=== PATIENT | female | born 1980 | race Caucasian/White ===

== ENCOUNTER 2016-12-22 17:10 | Emergency (ER) | payer OTHER ==
[2016-12-22] MEDS ORDERED: IOPAMIDOL 300 (61%) 100 ML VIAL IV ONE (17:11)
[2016-12-22] MEDS ORDERED: SODIUM CHLORIDE 0.9% 1,000 ML ONE ×2 (17:44→20:32)
[2016-12-22] MEDS ORDERED: ONDANSETRON 4 MG/2ML 2 ML VIAL ONE (17:44)
[2016-12-22] MEDS ORDERED: CEFTRIAXONE 1 GRAM DUPLEX 50 ML IV ONE (17:55)
[2016-12-22] MEDS ORDERED: KETOROLAC TROMETHAMINE 30 MG/ML 1 ML VIAL ONE (17:55)
[2016-12-22 18:25] LABS: ABSOLUTE NEUTROPHIL COUNT 12.8 K/mm3 (1.8-7.7); BASO % 0.2 % (0.2-1.0); HEMATOCRIT 37.6 % (37.0-47.0); HEMOGLOBIN 12.3 gm/l (12.0-16.0); IMM NEUT # 0.1 K/mm3 (0-0.2); IMM NEUT% 0.6 % (0-1); LYMPH # 0.9 (1.0-4.8); LYMPH % 6.1 % (15-45); MEAN CORPUSCULAR HEMOGLOBIN 30.8 pg (27.0-31.0); MEAN CORPUSCULAR HGB CONC 32.7 g/dl (33.0-37.0); MEAN PLATELET VOLUME 10.7 fl (7.4-10.4); MONO # 0.9 (0.0-0.8); MONO % 6.4 % (4-12); NEUT % 86.7 % (43-75); PLATELET COUNT 172 K/mm3 (130-400); RED CELL DISTRIBUTION WIDTH 12.2 % (11.5-14.5)
[2016-12-22 18:36] LABS: ALB/GLOB RATIO 0.9 (>1.0); ALBUMIN 3.1 gm/dL (3.5-5.7); CALCIUM 8.7 mg/dL (8.6-10.3)
[2016-12-22 19:27] LABS: BAND 8 % (0-10); BASOPHIL 0 % (0-1); EOSINOPHIL 0 % (1-3); LYMPHOCYTE 10 % (15-45); MONOCYTE 0 % (4-12); NEUTROPHILS 82 % (43-75); PLATELET ESTIMATE NORMAL (NORMAL); TOTAL CELLS COUNTED 100
[2016-12-22] MEDS ORDERED: VANCOMYCIN HCL 1 G in SODIUM CHLORIDE 0.9% 230 ML IV ONE (20:00)
[2016-12-22] MEDS ORDERED: SODIUM CHLORIDE 0.9% IV ONE (20:00)
[2016-12-22] MEDS ORDERED: CLINDAMYCIN PHOSPHATE IV ONE (20:00)
--- NOTE | 2016-12-22 20:29 | CT ---
CHEST CT WITH CONTRAST HISTORY: Right nipple injury. TECHNIQUE: Following the administration of 100 cc Isovue-300 intravenous contrast, contiguous axial images were acquired from the thoracic inlet to the diaphragmatic hiatus. COMPARISON: None. FINDINGS: THORACIC AORTA: Normal caliber. No evidence of dissection. LUNGS: Minor fibrotic atelectatic changes without gross airspace consolidation. Small pleural effusions.. TRISTON AND MEDIASTINUM: No grossly enlarged lymph nodes however there is stranding of fat identified at the anterior and superior mediastinum. MAJOR AIRWAYS: Grossly unremarkable. AXILLAE: Mild prominence of right axillary lymph nodes up to 1.4 cm in length.. UPPER ABDOMEN: Mottled appearance of hepatic attenuation. Enhancing lesion of the left hepatic lobe measuring 3.5 x 2.6 x 2.[address] versus ultrasound for further characterization. OSSEOUS STRUCTURES: No grossly destructive lesions. . SOFT TISSUES: Abnormal soft tissue edema involving the right-sided pectoral soft tissues, anterior soft tissues, right axilla, and the right supraclavicular fossa, with extension of fatty stranding to the thoracic inlet and mediastinum as above. IMPRESSION: 1. Extensive soft tissue inflammatory stranding, right greater than left, involving the anterior chest wall, right axilla and right supraclavicular fossa, with mediastinal extension, worrisome for cellulitis and mediastinitis. No soft tissue gas identified. 2. Right axillary adenopathy. 3. Small pleural effusions. 4. Enhancing mass lesion of the liver measuring 2.5 cm in size, further workup is recommended. Findings discussed with Dr. Salcido of the Emergency Medicine clinical service on 12/22/2016 at 2024 hours.
== END 2016-12-22 21:33 | disposition short-term general hospital (02) ==
LOC: ED 17:10
DX: N61.1 Abscess of the breast and nipple (principal); F17.210 Nicotine dependence, cigarettes, uncomplicated
CPT/HCPCS: 83605; 85025; 87040 ×2; 80053; 71260; 96375 ×2; 99285 ×2; 96365; 96367 ×2; 36415; J1885; J3370; J2405; J7050 ×2; J7030 ×2; Q9967; J0696